=== PATIENT | female | born 1980 | race Caucasian/White ===

== ENCOUNTER 2017-12-13 17:27 | Emergency (ER) | payer OTHER ==
[~2017-12-13] VITALS: Ht 167.6 cm; Wt 66.6 kg
[~2017-12-13 17:27] MED LIST: NIFE10CA2 PO; PREN1TAB60 PO; PROG100C2 VG; PROG100S VG
[2017-12-13 17:28] VITALS: BP 143/89
[2017-12-13] MEDS ORDERED: DIPH,PERTUSS(ACELL),TET VAC/PF 0.5 ML IM-VACC ONE ×2 (17:43→18:00)
[2017-12-13] MEDS ORDERED: LIDOCAINE-MPF 2% ,5ML ONE (17:43)
[2017-12-13] MEDS ORDERED: LIDOCAINE 2%, 10ML INFIL ONE (18:00)
== END 2017-12-13 18:42 | disposition home or self-care (01) ==
LOC: ED 18:08
DX: S60.572A Other superficial bite of hand of left hand, initial encounter (principal); W54.0XXA Bitten by dog, initial encounter; Y93.89 Activity, other specified; Y99.8 Other external cause status; Y92.009 Unspecified place in unspecified non-institutional (private) residence as the place of occurrence of the external cause
CPT/HCPCS: 12041; 90471; 90715